=== PATIENT | male | born 1935 | race Caucasian/White ===

== ENCOUNTER → 2017-05-13 | Outpatient (CLI) | payer MEDICARE ==
[2017-05-13 09:10] LABS: PROTHROMBIN TIME 26.1 SEC (11.4-15.4)
[2017-05-15 09:27] LABS: PROTHROMBIN TIME 21.8 SEC (11.4-15.4)
[2017-05-15 09:28] LABS: PARTIAL THROMBOPLASTIN TIME 36.8 SEC (23.5-35.8)
== END ==
LOC: OD 07:46
PROVIDERS: ATTEND Pain Medicine Interventional Pain Medicine
DX: Z79.01 Long term (current) use of anticoagulants (principal)
CPT/HCPCS: 36415; 85610; 85730

== ENCOUNTER → 2017-05-16 | Outpatient (CLI) | payer MEDICARE ==
[2017-05-16 08:30] LABS: PROTHROMBIN TIME 19.8 SEC (11.4-15.4)
[2017-05-16 08:31] LABS: PARTIAL THROMBOPLASTIN TIME 34.8 SEC (23.5-35.8)
== END ==
LOC: OD 07:11
PROVIDERS: ATTEND Pain Medicine Interventional Pain Medicine
DX: Z79.02 Long term (current) use of antithrombotics/antiplatelets (principal); Z79.01 Long term (current) use of anticoagulants
CPT/HCPCS: 36415; 85610; 85730

== ENCOUNTER → 2017-11-19 | Outpatient (CLI) | payer MEDICARE ==
--- NOTE | 2017-11-20 11:05 | RADIOLOGY REPORT (SQ) ---
EXAM DESCRIPTION: MRI ABDOMEN WITHOUT COMPLETED DATE/TIME: 11/19/2017 8:19 pm REASON FOR STUDY: OTHER SPECIFIED DISORDERS OF KIDNEY AND URETER, KIDNEY MASS N28.89 OTHER SPECIFIE D DISORDERS OF KIDNEY AND URETER COMPARISON: Ultrasound from outside facility dated 09/23/2017. TECHNIQUE: Precontrast T1, T2, STIR, in and out of phase T1 sequences. CONTRAST TYPE AND DOSE: Noncontrast study. RENAL FUNCTION: GFR 32. LIMITATIONS: Motion artifact. FINDINGS: RIGHT KIDNEY: 7 mm cortical cyst in the mid kidney. Tiny 2- 3 mm cyst in the upper pole c ortex. 1 cm cortical lesion in the upper pole with signal not clearly simple fluid. There is strand ing/ edema in the perinephric soft tissues. No hydronephrosis. LEFT KIDNEY: No solid masses. There is stranding/ edema in the perinephric soft tissues. No hydrone phrosis. OTHER SOLID ORGANS: No significant abnormality. GALLBLADDER: Gallstones. VASCULAR STRUCTURES: No aortic aneurysm. No dissection. RETROPERITONEUM, PERITONEUM: No retroperitoneal adenopathy, hemorrhage or masses. There is a small a mount of free fluid in the right upper quadrant between the liver and diaphragm. MARROW SIGNAL IN THE SPINE AND VISUALIZED PELVIS: Normal marrow signal. No marrow replacement. IMPRESSION: 1. SMALL CORTICAL CYSTS IN THE RIGHT KIDNEY. 1 CM LESION IN THE UPPER POLE WITH SIGNAL THAT IS NOT C LEARLY SIMPLE FLUID. THIS IS PROBABLY A HEMORRHAGIC OR PROTEINACEOUS CYST. SOLID MASS LESS LIKELY. CONSIDER FOLLOW-UP IMAGING IN 3-4 MONTHS TO RE-EVALUATE. 2. NO ABNORMAL FINDINGS IN THE LEFT KIDNEY. NONSPECIFIC BILATERAL PERINEPHRIC STRANDING/ EDEMA. 3. GALLSTONES. 4. SMALL AMOUNT OF FREE FLUID IN THE RIGHT UPPER QUADRANT BETWEEN THE LIVER AND DIAPHRAGM. TECHNICAL DOCUMENTATION: JOB ID: [id number]- All Rights Reserved
== END ==
LOC: RAD 18:34
PROVIDERS: ATTEND Internal Medicine Medical Oncology
DX: N28.89 Other specified disorders of kidney and ureter (principal)
CPT/HCPCS: 74181; 82565

== ENCOUNTER → 2017-12-30 | Outpatient (CLI) | payer MEDICARE | LOC: OD 17:29 | PROVIDERS: ATTEND Physician Assistant Medical | DX: E87.5 Hyperkalemia (principal) ==

== ENCOUNTER → 2018-01-01 | Outpatient (CLI) | payer MEDICARE | LOC: OD 14:09 | PROVIDERS: ATTEND Physician Assistant Medical | DX: E87.5 Hyperkalemia (principal) | CPT/HCPCS: 36415; 84132 ==